=== PATIENT | female | born 1950 | race Caucasian/White ===

== ENCOUNTER 2018-01-27 07:05 | Inpatient (IN) | payer MEDICARE, OTHER ==
[~2018-01-27] VITALS: Ht 157.5 cm; Wt 102.1 kg
[2018-01-27] MEDS ORDERED: PANTOPRAZOLE 40 MG 10ML VIAL IV STA (07:47)
[2018-01-27] MEDS ORDERED: SODIUM CHLORIDE 0.9% 1000ML 1,000 ML IV STA (07:47)
[2018-01-27] MEDS ORDERED: ONDANSETRON HCL INJ 2 MG/ML VIAL IV STA (07:47)
[2018-01-27] MEDS ORDERED: SODIUM CHLORIDE 0.9% 250ML 250 ML IV ONE (08:00)
[2018-01-27 08:10] LABS: BASOPHILS % 0.2 % (0.0-1.0); EOSINOPHILS % 0.3 % (0.0-6.0); HEMATOCRIT 29.9 % (34.2-44.1); HEMOGLOBIN 9.4 g/dL (12.0-16.0); LYMPHOCYTES # (AUTO) 1.8 (1.0-3.2); LYMPHOCYTES % 13.3 % (18.0-39.1); MEAN CORPUSCULAR HEMOGLOBIN 30.4 pg (28-32); MEAN CORPUSCULAR HGB CONC 31.4 g/dL (31-35); MEAN CORPUSCULAR VOLUME 96.8 fL (81-99); MONOCYTES # (AUTO) 0.6 (0.2-0.8); MONOCYTES % 4.4 % (4.4-11.3); NEUTROPHILS # (AUTO) 10.8 (2.1-6.9); NEUTROPHILS % 81.3 % (38.7-80.0); PLATELET COUNT 252 x10e3/uL (140-360); RED BLOOD COUNT 3.09 x10e6/uL (3.6-5.1); RED CELL DISTRIBUTION WIDTH 14.9 % (11.7-14.4)
[2018-01-27 08:14] LABS: INR 1.08; PROTHROMBIN TIME 13.2 seconds (11.9-14.5)
[2018-01-27 08:15] LABS: PARTIAL THROMBOPLASTIN TIME 20.5 seconds (23.8-35.5)
[2018-01-27 08:25] LABS: ALANINE AMINOTRANSFERASE 9 IU/L (0-55); ALBUMIN 2.8 g/dL (3.5-5.0); ALKALINE PHOSPHATASE 66 IU/L (40-150); ANION GAP 12.6 mmol/L (8-16); BLOOD UREA NITROGEN 30 mg/dL (7-26); BUN/CREATININE RATIO 52 (6-25); CALCIUM 8.2 mg/dL (8.4-10.2); CARBON DIOXIDE 26 mmol/L (22-29); CHLORIDE 107 mmol/L (98-107); CREATINE KINASE 47 IU/L (29-168); CREATININE, SERUM 0.58 mg/dL (0.57-1.11); EST GLOMERULAR FILTRATION RATE > 60 ML/MIN (60-); GLUCOSE 178 mg/dL (74-118); POTASSIUM 3.6 mmol/L (3.5-5.1); SODIUM 142 mmol/L (136-145)
--- NOTE | 2018-01-27 08:42 | Diagnostic Imaging Report ---
PROCEDURE: CHEST SINGLE (PORTABLE) COMPARISON: None. INDICATIONS: SHORTNESS OF BREATH, WEAKNESS FINDINGS: The lungs are well-inflated. No focal airspace consolidation, pleural effusion, or pneumothorax. Tortuosity of the thoracic aorta with otherwise normal heart size for portable, AP technique. No overt pulmonary edema. No acute osseous abnormality. CONCLUSION: No acute cardiopulmonary abnormality. Dictated by: Wai Cruz M.D. on 01/27/2018 at 8:44 Electronically approved by: Wai Cruz M.D. on 01/27/2018 at 8:44
[2018-01-27] MEDS ORDERED: ONDANSETRON HCL 4 MG ORAL DISINTEGRATING TAB PO ONE (08:45)
--- OUTSIDE RECORDS SUMMARY | 2018-01-27 09:51 | XMS REPORT ---
Author Author [facility] Address Unknown Phone Unavailable Care Team Providers Care Dock Hand Name Role Phone LANCE FLOYD Unavailable Unavailable Problems This patient has no known problems. Allergies, Adverse Reactions, Alerts This patient has no known allergies or adverse reactions. Medications This patient has no known medications. Results Test Description Test Time Test Comments Text Results Atomic Results Result Comments CHEST SINGLE (PORTABLE) [place] [address] Patient Name: KIMMY DELGADO MR #: [id number] : 1950 Age/Sex: 67/F Req #: [id number] Adm Physician: Ordered by: LANCE FLOYD MD Report #: [id number] Location: ER Room/Bed: Procedure: [id number] DX/CHEST SINGLE (PORTABLE) Exam Date: 01/27/18 Exam Time: 0815 REPORT STATUS: Signed PROCEDURE: CHEST SINGLE (PORTABLE) COMPARISON: None. INDICATIONS: SHORTNESS OF BREATH, WEAKNESS FINDINGS: The lungs are well-inflated. No focal airspace consolidation, pleural effusion, or pneumothorax. Tortuosity of the thoracic aorta with otherwise normal heart size for portable, AP technique. No overt pulmonary edema. No acute osseous abnormality. CONCLUSION: No acute cardiopulmonary abnormality. Dictated by: Joya Alex M.D. on 01/27/2018 at 8:44 Electronically approved by: Joya Alex M.D. on 01/27/2018 at 8:44 Dictated By: JOYA ALEX MD 3 Transcribed By: KEYANA on 01/27/18843 COPY TO: LANCE FLOYD MD
[2018-01-27] MEDS: PANTOPRAZOL 40MG/SOD CHL 0.9% 50 ML IV SCH ×3 (10:20→19:30)
[2018-01-27] MEDS: SODIUM CHLORIDE 0.9% 1000ML 1,000 ML IV SCH ×3 (10:20→21:30)
[2018-01-27 10:50] LABS: BILIRUBIN,URINE NEGATIVE (NEGATIVE); CLARITY,URINE CLEAR (CLEAR); COLOR,URINE YELLOW (YELLOW); KETONES,URINE NEGATIVE (NEGATIVE); LEUKOCYTE ESTERASE ,URINE NEGATIVE (NEGATIVE); NITRITE,URINE NEGATIVE (NEGATIVE); PROTEIN,URINE DIPSTICK NEGATIVE (NEGATIVE); URINE UROBILINOGEN 0.2 mg/dL (0.2 - 1)
[2018-01-27 11:05] LABS: BACTERIA,URINE RARE /HPF; EPITHELIAL CELLS,URINE RARE /LPF; WBC,URINE (MAN) 0-5 /HPF (0-5)
[2018-01-27] MEDS ORDERED: EPINEPHRINE HCL INJ 1 MG/ML AMP ONE (13:22)
--- NOTE | 2018-01-27 13:46 | Consultation ---
DATE OF CONSULTATION: January 27, 2018 REASON FOR CONSULTATION: Melena. CONSULTING PHYSICIAN: Dr. Omari Emerson HPI: The patient is a 67-year-old female with past medical history of hypertension, diabetes mellitus, GERD, IBS, morbid obesity with history of gastric band about 30 years who presented to the ED today with complaints of a single syncopal episode and weakness. Patient says she had recently had a lower back surgery about a week ago. Her had noted that she has passed out yesterday with dizziness and weakness. Upon arrival her hemoglobin was 9.4 and there was observation of melena. Fecal occult blood was also positive. Denies any abdominal pain or discomfort. She also reports constipation. Denies any use of NSAIDs or previous history of peptic ulcer disease. She has not had any EGD in the past but she has had a sigmoidoscopy about 20 years ago. Denies any chest pain, palpitations, diarrhea, sweats or chills. PAST SURGICAL HISTORY: We have gastric band, complete hysterectomy, tubal ligation, two wrist surgeries, one knee surgery and cholecystectomy. MEDICATIONS: Please see nurse's notes. ALLERGIES: Please see nurse's notes. SOCIAL HISTORY: Denies any smoking or alcohol use. FH: noncontributory PHYSICAL EXAMINATION VITAL SIGNS: Blood pressure 122/94, pulse 81, respiratory rate 20, pulse ox 97. APPEARANCE: Alert, no acute distress. HEENT: Neck supple, nontender. Normal inspection. CARDIOVASCULAR: Normal heart rate and rhythm. Pulse is normal. RESPIRATORY: Clear to auscultation bilaterally. No respiratory distress. ABDOMEN: Soft, nontender. Bowel sounds active. No organomegaly. BACK: Tenderness to palpation noted. SKIN: No rash. Pallor noted. EXTREMITIES: No cyanosis, no edema, no clubbing. NEURO: Alert and oriented times 3. Speech normal. No motor deficit. LABS: White count 13.2, hemoglobin 9.4, platelet count 252, coag INR 1.08, sodium 142, potassium 3.6, BUN 30. Total protein 5.5. Fecal occult positive. Chest x-ray: No acute cardiopulmonary abnormality. ASSESSMENT 1. Melena with fecal occult blood positive. 2. Anemia with hemoglobin of 9.4. 3. Syncope. 4. Hypotension. 5. Low back pain. PLAN: We will go ahead and schedule patient for EGD today to rule out GI bleed due to anemia and melena. If EGD is negative will proceed with colonoscopy in the future. Monitor CBC and blood counts and transfuse if less than 7. Thank you for consulting us. We will follow. Dictated by: Chiara Kelly PA-C Patient seen and examined. Agree with documentation as above. Job#: [id number] DG MTDDaniel
[2018-01-27] MEDS ORDERED: DIATRIZOATE MEGL/DIATRIZOA SOD 30 ML BTL PO ONE (13:56)
--- NOTE | 2018-01-27 17:10 | Diagnostic Imaging Report ---
CT Abdomen With Enhancement CPT CODE: 65069 INDICATION: GI bleed, history of lap band TECHNIQUE: 5 mm collimation axial images obtained from the diaphragm to the level of the iliac crests following the uneventful administration of 100 cc of low osmolar, nonionic intravenous contrast. RADIATION DOSE: Total DLP: 516.3 mGy*cm Estimated effective dose: (DLP x 0.015 x size factor) mSv CTDIvol has been reviewed. It is below the limits set by the Radiation Protocol Committee (RPC). COMPARISON: None. ABDOMEN FINDINGS: Lung Bases: Mild hyperinflation with bibasilar atelectasis. Significant coronary artery calcifications. The heart is normal in size. There is a small to moderate-sized paraesophageal hernia. Liver: Decreased attenuation.. No evidence for mass. Gallbladder: Absent. No biliary ductal dilatation. Pancreas: Normal attenuation without mass or ductal dilatation. Spleen: Normal in attenuation and size without mass. Adrenal Glands: No evidence for mass. Kidneys: Symmetric enhancement. No cortical mass. No hydronephrosis. Lymph Nodes: No enlarged abdominal or periaortic lymph nodes. Bowel: There is no evidence of laparoscopic gastric band. There is narrowing of the GE junction that may be the result of previous band placement. The remainder of the stomach is well opacified and appears normal. Opacified portions of the small bowel are normal in diameter with normal wall thickness. There is enteric contrast in the cecum. There are diverticula in the descending colon without associated inflammation. The sigmoid colon was not included on this exam. The appendix is not visualized. Aorta: Ectatic but normal in diameter with scattered calcifications. No free fluid or fluid collection. Bones: Postoperative changes of the lumbar spine from laminectomy and posterior fusion from L4 to S1. The hardware is intact without surrounding lucency to suggest loosening. There is grade 1 anterolisthesis of L4 on L5. There is a loculated fluid collection posterior to the spine between the erector spinae beginning at L2 and extending from proximally 10 cm. This measures 4.3 x 1.8 cm in the axial plane and 9 Hounsfield units. The psoas muscles appear normal. There are moderate degenerative changes of the lower thoracic and upper lumbar spine. No compression deformity. No destructive lesions. Soft tissues: Fat-containing hernia through the linea alba to the left of midline has an aperture of 2.4 cm. This is incompletely imaged. There is no bowel containing hernia. IMPRESSION: 1. Small to moderate-sized paraesophageal hernia. 2. No evidence of laparoscopic gastric band or other bariatric program medical director. 3. Diverticulosis coli. No evidence of diverticulitis in the visualized portions of the large bowel. No evidence of bowel obstruction. 4. Hepatic steatosis. 5. Cholecystectomy. 6. Postoperative changes of the spine from laminectomy and fusion with a loculated fluid collection in the soft tissues, likely a seroma. Please correlate for signs/symptoms of infection. Signed by: Dr. Jorge Ames MD on 01/27/2018 5:07 PM
[2018-01-27] MEDS ORDERED: PROPOFOL IV EMULSION 10 MG/ML 20 ML VIAL ONE (17:43)
[2018-01-27] MEDS ORDERED: LIDOCAINE HCL 2% LOCAL INJ 5 ML SDV VIAL INJ ONE (17:43)
[2018-01-27 18:25] VITALS: BP 114/66
--- NOTE | 2018-01-27 20:42 | Consultation ---
DATE OF CONSULTATION: January 27, 2018 CO-REFERRING PHYSICIAN: Dr. Merari Lange HISTORY OF PRESENT ILLNESS: Patient is a 67-year-old female, history of hypertension, diabetes, obesity, previous gastric band done 30 years ago. She presented to the hospital after a syncopal episode with feelings of weakness. She has upper GI endoscopy that revealed erosion of the gastric banded into the stomach with bleeding around her, was eroding. She is hemodynamically stable now. CT of the abdomen was done, which did not reveal the band and she does not have a LAP-BAND. This was a Dacron band placed with open surgery 30 years ago. PAST MEDICAL HISTORY: Patient has history of previous hysterectomy with tubal ligation, wrist surgery, knee surgery, cholecystectomy, and the above-mentioned gastric and. There were no medications at home has no known. ALLERGIES: NO KNOWN DRUG ALLERGIES. FAMILY HISTORY: Noncontributory. SOCIAL HISTORY: Patient does not smoke cigarettes or drink alcohol. REVIEW OF SYSTEMS: As stated above. She has had no fever. EXAM VITAL SIGNS: Normal. GENERAL: The patient is awake and alert, in no distress. HEENT: Reveals no scleral icterus. NECK: Has no masses. LUNGS: Equal breath sounds are clear bilaterally. CARDIAC: Regular rate and rhythm, with no murmur. ABDOMEN: Soft. There is a healed right subcostal wound, healed upper midline wound. There was no mass. There was no significant tenderness. EXTREMITIES: Have no edema. NEUROLOGIC: Grossly intact. LAB TESTS: White blood count 13.2, hemoglobin 9.4, hematocrit 29.9. Chemistries are essentially normal. ASSESSMENT: A 67-year-old female with upper gastrointestinal bleeding secondary to erosion of gastric band into the stomach. At this point, I think the best treatment would be to proceed with surgery to remove the gastric band. PLAN: To schedule for tomorrow. Procedure was explained to the patient including risks, benefits, and alternatives. She understands procedures. She has had the opportunity to ask questions. Thank you for asking me to see Ms. Broderick. Job#: [id number] CQ
[2018-01-27] MEDS ORDERED: SODIUM CHLORIDE 0.9% 1000ML 1,000 ML ONE (20:53)
[2018-01-27] MEDS: METOCLOPRAMIDE HCL 10 MG/2ML VIAL IV SCH (21:00)
[2018-01-27 21:39] LABS: HEMATOCRIT 24.1 % (34.2-44.1); HEMOGLOBIN 7.6 g/dL (12.0-16.0)
[2018-01-27] MEDS ORDERED: IOPAMIDOL 370 MG/ML 200 ML INFUS..BTL INJ ONE (22:14)
[2018-01-27] MEDS ORDERED: SODIUM CHLORIDE 0.9% 50ML 50 ML ONE (22:14)
[2018-01-27 22:25] VITALS: BP 99/63
[2018-01-27] MEDS ORDERED: SIMVASTATIN20 MG PO (22:53)
[2018-01-27] MEDS ORDERED: LOSARTAN POTAS100 MG PO (22:55)
[2018-01-27] MEDS ORDERED: HYDROCHLOROTHIA25 MG (22:56)
[2018-01-27] MEDS ORDERED: ASPIR 8181 MG PO (22:57)
[2018-01-27] MEDS ORDERED: SYNTHROID100 MCG PO (22:58)
[2018-01-28] VITALS (7 sets, daily range): BP systolic 92–141; BP diastolic 56–74
[2018-01-28] MEDS: PANTOPRAZOL 40MG/SOD CHL 0.9% 50 ML IV SCH ×5 (01:00→20:12)
[2018-01-28] MEDS: METOCLOPRAMIDE HCL 10 MG/2ML VIAL IV SCH ×4 (01:00→18:13)
[2018-01-28 03:59] LABS: HEMATOCRIT 23.1 % (34.2-44.1); HEMOGLOBIN 7.3 g/dL (12.0-16.0)
[2018-01-28] MEDS: SODIUM CHLORIDE 0.9% 1000ML 1,000 ML IV SCH ×3 (05:30→21:30)
[2018-01-28 06:13] LABS: BASOPHILS % 0.2 % (0.0-1.0); EOSINOPHILS % 0.2 % (0.0-6.0); HEMATOCRIT 23.1 % (34.2-44.1); HEMOGLOBIN 7.3 g/dL (12.0-16.0); LYMPHOCYTES # (AUTO) 2.2 (1.0-3.2); LYMPHOCYTES % 27.4 % (18.0-39.1); MEAN CORPUSCULAR HEMOGLOBIN 30.4 pg (28-32); MEAN CORPUSCULAR HGB CONC 31.6 g/dL (31-35); MEAN CORPUSCULAR VOLUME 96.3 fL (81-99); MONOCYTES # (AUTO) 0.5 (0.2-0.8); MONOCYTES % 5.7 % (4.4-11.3); NEUTROPHILS # (AUTO) 5.3 (2.1-6.9); NEUTROPHILS % 65.6 % (38.7-80.0); PLATELET COUNT 202 x10e3/uL (140-360); RED CELL DISTRIBUTION WIDTH 15.3 % (11.7-14.4)
[2018-01-28 06:44] LABS: ANION GAP 8.8 mmol/L (8-16); BLOOD UREA NITROGEN 18 mg/dL (7-26); BUN/CREATININE RATIO 34 (6-25); CARBON DIOXIDE 27 mmol/L (22-29); CHLORIDE 110 mmol/L (98-107); CREATININE, SERUM 0.53 mg/dL (0.57-1.11); EST GLOMERULAR FILTRATION RATE > 60 ML/MIN (60-); GLUCOSE 112 mg/dL (74-118); POTASSIUM 3.8 mmol/L (3.5-5.1); SODIUM 142 mmol/L (136-145)
[2018-01-28] MEDS ORDERED: HYDROCODONE/APAP 5MG-325MG TAB PO PRN (07:00)
[2018-01-28] MEDS ORDERED: SODIUM CHLORIDE 0.9% 250ML 250 ML IV ONE ×2 (07:00→07:15)
[2018-01-28 09:37] LABS: CHOL/HDL RATIO 5.2 (3.0-3.6)
[2018-01-28 10:04] LABS: FERRITIN 64.46 ng/mL (4.63-204.00)
--- NOTE | 2018-01-28 10:08 | History and Physical ---
PRIMARY CARE PHYSICIAN: Dr. Red Anand. CHIEF COMPLAINT: Passing out. HISTORY OF PRESENT ILLNESS: This is a 67-year-old woman with a history of prediabetes and thyroid disease, now getting sweaty when she went to the bathroom. Upon return to bed, she passed out in her 's arms. Did not hit the floor. Therefore, she was brought to the hospital for further evaluation and management. Patient denies any vomiting or diarrhea. Here, she was found to have low blood pressure and positive stool occult blood. GI was consulted. Patient admitted for further evaluation and management. PAST MEDICAL HISTORY: Prediabetes, hypertension, hyperlipidemia, thyroid disease, morbid obesity, status post gastric bypass about 30 years ago, GERD, and IBS. PAST SURGICAL HISTORY: History of bypass surgery about 30 years ago, back surgery 5 weeks ago, hand surgery times 2, knee meniscus surgery, cholecystectomy, hysterectomy, and tonsillectomy. ALLERGIES: PER ELECTRONIC MEDICAL RECORD. FAMILY HISTORY/SOCIAL HISTORY: Patient is . She has 2 children. No alcohol, illicits or cigarettes. MEDICATIONS: Per electronic medical record. REVIEW OF SYSTEMS: Denies any dizziness or chest pain. PHYSICAL EXAMINATION VITAL SIGNS: Reviewed. Blood pressure was 91/58. GENERAL: A tired-appearing woman resting in bed. HEENT: Anicteric. Pupils respond to light. No oral lesions. CARDIOVASCULAR: Normal S1 and S2. LUNGS: Moderate breath sounds. ABDOMEN: Soft, nontender, and nondistended. EXTREMITIES: No edema or calf tenderness. NEUROLOGICAL: Alert and oriented times 3. Moving all extremities. SKIN: Dry. PSYCHIATRIC: Normal affect. LABS: Reviewed. MEDICATIONS: Reviewed. ASSESSMENT AND PLAN: This is a 67-year-old woman with 1. Syncope in the setting of hypotension. Rehydrate and reassess. Obtain orthostatic vitals. Obtain an echocardiogram. 2. Melena in the setting of anemia. Removal of the gastric band is being planned by Dr. Boyle. Follow up endoscopy report. Computerized tomography of the abdomen showed a small moderate-sized paraesophageal hernia. 3. Normocytic anemia, moderate. Will obtain anemia panel. 4. Leukocytosis of unknown etiology, resolving. 5. Morbid obesity, body mass index is 41.2. Obtain lipid panel and hemoglobin A1c. 6. Prediabetes. Obtain hemoglobin A1c. 7. Thyroid disease. Obtain thyroid-stimulating hormone. 8. Diverticulosis. No evidence of diverticulitis on imaging. 9. Fluid collection soft tissue of the spine, status post laminectomy and fusion. Possibility of seroma. We will follow up for any symptoms. 10. Hypotension, we will hold on hypertensive medications. 11. Prophylaxis: Use sequential compression devices and Pepcid. 12. Disposition: Follow up endoscopy report. Follow up surgical plans for removal of gastric band and obtain further studies including echocardiogram. Job#: [id number] CF
[2018-01-28] MEDS ORDERED: SODIUM CHLORIDE 0.9% 250ML 250 ML ONE (12:42)
[2018-01-28 18:30] LABS: BASOPHILS # (AUTO) 0.1 (0.0-0.1); BASOPHILS % 0.5 % (0.0-1.0); EOSINOPHILS # (AUTO) 0.1 (0.0-0.4); EOSINOPHILS % 0.5 % (0.0-6.0); HEMATOCRIT 31.1 % (34.2-44.1); HEMOGLOBIN 9.7 g/dL (12.0-16.0); LYMPHOCYTES # (AUTO) 2.2 (1.0-3.2); MEAN CORPUSCULAR HEMOGLOBIN 29.8 pg (28-32); MEAN CORPUSCULAR HGB CONC 31.2 g/dL (31-35); MEAN CORPUSCULAR VOLUME 95.7 fL (81-99); MONOCYTES # (AUTO) 0.9 (0.2-0.8); MONOCYTES % 8.2 % (4.4-11.3); NEUTROPHILS # (AUTO) 7.2 (2.1-6.9); NEUTROPHILS % 68.6 % (38.7-80.0); PLATELET COUNT 221 x10e3/uL (140-360); RED BLOOD COUNT 3.25 x10e6/uL (3.6-5.1); RED CELL DISTRIBUTION WIDTH 16.2 % (11.7-14.4)
[2018-01-28] MEDS: SIMVASTATIN 20 MG TAB PO SCH (20:12)
[2018-01-29] MEDS: METOCLOPRAMIDE HCL 10 MG/2ML VIAL IV SCH ×3 (00:10→12:00)
[2018-01-29 00:33] LABS: BASOPHILS % 0.3 % (0.0-1.0); EOSINOPHILS # (AUTO) 0.1 (0.0-0.4); EOSINOPHILS % 0.5 % (0.0-6.0); HEMOGLOBIN 9.6 g/dL (12.0-16.0); LYMPHOCYTES # (AUTO) 2.3 (1.0-3.2); LYMPHOCYTES % 22.8 % (18.0-39.1); MEAN CORPUSCULAR HEMOGLOBIN 30.8 pg (28-32); MEAN CORPUSCULAR HGB CONC 33.1 g/dL (31-35); MEAN CORPUSCULAR VOLUME 92.9 fL (81-99); MONOCYTES # (AUTO) 0.5 (0.2-0.8); MONOCYTES % 4.7 % (4.4-11.3); NEUTROPHILS % 70.9 % (38.7-80.0); PLATELET COUNT 202 x10e3/uL (140-360); RED BLOOD COUNT 3.12 x10e6/uL (3.6-5.1); RED CELL DISTRIBUTION WIDTH 16.2 % (11.7-14.4)
[2018-01-29] MEDS: PANTOPRAZOL 40MG/SOD CHL 0.9% 50 ML IV SCH ×4 (01:56→21:30)
[2018-01-29 04:39] VITALS: BP 153/84
[2018-01-29] MEDS: SODIUM CHLORIDE 0.9% 1000ML 1,000 ML IV SCH (05:30)
[2018-01-29] MEDS: LEVOTHYROXINE SODIUM 100 MCG TAB PO SCH (06:00)
[2018-01-29 06:13] LABS: BASOPHILS % 0.4 % (0.0-1.0); EOSINOPHILS % 0.6 % (0.0-6.0); LYMPHOCYTES # (AUTO) 1.6 (1.0-3.2); LYMPHOCYTES % 22.3 % (18.0-39.1); MEAN CORPUSCULAR HGB CONC 32.1 g/dL (31-35); MEAN CORPUSCULAR VOLUME 93.3 fL (81-99); MONOCYTES # (AUTO) 0.4 (0.2-0.8); NEUTROPHILS % 69.4 % (38.7-80.0); PLATELET COUNT 183 x10e3/uL (140-360); RED CELL DISTRIBUTION WIDTH 16.1 % (11.7-14.4)
[2018-01-29 07:00] VITALS: BP 133/69
--- NOTE | 2018-01-29 07:09 | Progress Note ---
DATE: January 29, 2018 TIME: 6:46 a.m. OVERNIGHT: No events. REVIEW OF SYSTEMS: Denies any dizziness. PHYSICAL EXAMINATION VITAL SIGNS: Reviewed. GENERAL: A tired-appearing woman resting in bed. HEENT: Anicteric. CARDIOVASCULAR: Normal S1 and S2. LUNGS: Moderate breath sounds. ABDOMEN: Soft and nontender. EXTREMITIES: No edema or calf tenderness. NEUROLOGICAL: Alert and oriented times 3. Moving all extremities. LABS: Reviewed. MEDICATIONS: Reviewed. ASSESSMENT: A 67-year-old woman with: 1. Syncope in the setting of hypotension. 2. Melena in the setting of anemia. 3. Normocytic anemia, moderate: Status post transfusion. 4. Morbid obesity: Body mass index 41.2. 5. Prediabetes. 6. Thyroid disease. 7. Diverticulosis. 8. Fluid collection in the soft tissue following laminectomy. 9. Hypotension. PLAN 1. Surgery pending today to remove the orogastric banding. 2. Hemoglobin is stable and improved. Now, it is 9 today and 9.6 yesterday. Remains somewhat stable. 3. Hemoglobin A1c 5.6, LDL 84 and triglycerides 143. Job#: [id number] DC
[2018-01-29 11:00] VITALS: BP 144/69
[2018-01-29] MEDS ORDERED: BACITRACIN 50,000 UNIT VIAL ONE (12:53)
[2018-01-29] MEDS: DEXTROSE 5%/LACTATED RINGERS 1,000 ML IV SCH ×2 (13:54→22:57)
[2018-01-29] MEDS ORDERED: ONDANSETRON HCL INJ 2 MG/ML VIAL IV PRN (14:00)
[2018-01-29] MEDS ORDERED: NALOXONE HCL INJ 0.4 MG/ML AMP IV PRN (14:00)
[2018-01-29] MEDS ORDERED: DIPHENHYDRAMINE HCL INJ 50 MG/ML VIAL IM PRN (14:00)
[2018-01-29] MEDS ORDERED: ACETAMINOPHEN 1000 MG/100 ML IV PRN (14:00)
[2018-01-29] MEDS ORDERED: CEFAZOLIN SOD 2 GM in WATER STERILE 10ML VIAL 10 ML IV SCH (14:00)
[2018-01-29] MEDS ORDERED: FENTANYL CITRATE/PF 100MCG/2 ML INJ ONE ×2 (14:09→17:25)
[2018-01-29] MEDS ORDERED: ACETAMINOPHEN 1000 MG/100 ML 100 ML IV ONE (14:35)
[2018-01-29] MEDS ORDERED: KETOROLAC TROMETHAMINE 30 MG/ML VIAL ONE (14:35)
[2018-01-29 15:00] VITALS: BP 135/75
[2018-01-29] MEDS: CEFAZOLIN SOD 1 GM VIAL IV SCH ×2 (15:00→21:18)
[2018-01-29] MEDS ORDERED: HYDROMORPHONE 0.2MG/ML-SOD CHL 30ML PCA SYRINGE IV ONE (15:03)
--- NOTE | 2018-01-29 15:53 | Operative Report ---
DATE OF PROCEDURE: January 29, 2018 PREOPERATIVE DIAGNOSIS: 1. Eroded gastric band. 2. Upper gastrointestinal bleeding. POSTOPERATIVE DIAGNOSIS: 1. Eroded gastric band. 2. Upper gastrointestinal bleeding. PROCEDURE: 1. Exploratory laparotomy. 2. Gastrotomy with removal of eroded gastric band. GAMBLING DEALER: None. ANESTHESIA: General. INDICATIONS AND FINDINGS: Patient is a 67-year-old female who had a gastric band placed many years ago. She was admitted to the hospital with upper GI bleeding, and endoscopy revealed erosion of the gastric band into the proximal stomach. At surgery the band was palpable within the stomach. It was within the gastric wall. The portion had eroded into the lumen. A gastrotomy was made and the band was removed without difficulty. TECHNIQUE: After adequate general anesthesia, patient in supine position, the abdomen was prepped and draped in sterile fashion with Phoenix solution. Through an upper midline incision the peritoneal cavity was entered. Initial exploration revealed some adhesions involving the omentum. These adhesions were lysed. Palpation of the stomach revealed the band palpable in the proximal stomach. The stomach was mobilized. The area where the band was palpable was identified, and it was all completely either intraluminal or within the gastric wall. A gastrotomy was made. The band was found to be about 3/4 intraluminal, and the band was divided and removed without difficulty. Hemostasis was seen to be adequate. The gastrotomy was then closed in 2 layers using 2-0 Vicryl and 3-0 silk, and then omentum was sutured over the suture line using 3-0 silk. The peritoneal cavity was irrigated with saline, all fluid aspirated. It was inspected for hemostasis, which was seen to be adequate. It was irrigated once again with saline, all fluid aspirated, inspected for hemostasis, which was seen to be adequate. The wound was then closed. The midline fascia was closed with running suture of number 1 PDS. Subcutaneous tissue was irrigated with saline, and skin was closed with carl. Sterile dressing was applied. Patient tolerated the procedure well. Estimated blood loss was 50 mL. There were no complications. All counts were correct. Patient was taken to the recovery room in satisfactory condition. Job#: [id number] EV
[2018-01-29] MEDS ORDERED: ONDANSETRON HCL INJ 2 MG/ML VIAL ONE (17:12)
[2018-01-29] MEDS ORDERED: PROPOFOL IV EMULSION 10 MG/ML 20 ML VIAL ONE (17:12)
[2018-01-29] MEDS ORDERED: LIDOCAINE HCL 2% LOCAL INJ 5 ML SDV VIAL INJ ONE (17:12)
[2018-01-29] MEDS ORDERED: SEVOFLURANE INHAL SOLN 250 ML PEN BTL ONE (17:12)
[2018-01-29] MEDS ORDERED: ROCURONIUM BROMIDE 10 MG/ML 5ML VIAL ONE (17:12)
[2018-01-29] MEDS ORDERED: MIDAZOLAM HCL 2 MG/2 ML VIAL ONE (17:25)
[2018-01-29 18:50] LABS: BASOPHILS % 0.2 % (0.0-1.0); EOSINOPHILS % 0.1 % (0.0-6.0); HEMATOCRIT 26.7 % (34.2-44.1); HEMOGLOBIN 8.6 g/dL (12.0-16.0); LYMPHOCYTES # (AUTO) 1.4 (1.0-3.2); LYMPHOCYTES % 12.3 % (18.0-39.1); MEAN CORPUSCULAR HEMOGLOBIN 30.3 pg (28-32); MEAN CORPUSCULAR HGB CONC 32.2 g/dL (31-35); MONOCYTES # (AUTO) 0.6 (0.2-0.8); MONOCYTES % 5.4 % (4.4-11.3); NEUTROPHILS # (AUTO) 9.2 (2.1-6.9); NEUTROPHILS % 81.4 % (38.7-80.0); PLATELET COUNT 176 x10e3/uL (140-360); RED BLOOD COUNT 2.84 x10e6/uL (3.6-5.1); RED CELL DISTRIBUTION WIDTH 15.9 % (11.7-14.4)
[2018-01-29 19:25] VITALS: BP 119/66
[2018-01-29 20:00] VITALS: BP 119/66
[2018-01-29] MEDS: SIMVASTATIN 20 MG TAB PO SCH (21:00)
[2018-01-30] VITALS: BP 113/61
[2018-01-30] MEDS: PANTOPRAZOL 40MG/SOD CHL 0.9% 50 ML IV SCH ×5 (00:14→18:36)
[2018-01-30] MEDS: HYDROMORPHONE 0.2MG/ML-SOD CHL 30ML PCA SYRINGE IV PRN (02:40)
[2018-01-30 04:40] VITALS: BP 97/53
[2018-01-30] MEDS: LEVOTHYROXINE SODIUM 100 MCG TAB PO SCH (05:55)
[2018-01-30] MEDS: CEFAZOLIN SOD 1 GM VIAL IV SCH (05:55)
[2018-01-30] MEDS: METOCLOPRAMIDE HCL 10 MG/2ML VIAL IV SCH ×4 (05:56→18:35)
[2018-01-30 06:20] LABS: BASOPHILS % 0.1 % (0.0-1.0); EOSINOPHILS # (AUTO) 0.1 (0.0-0.4); EOSINOPHILS % 0.4 % (0.0-6.0); HEMATOCRIT 25.1 % (34.2-44.1); HEMOGLOBIN 8.1 g/dL (12.0-16.0); LYMPHOCYTES # (AUTO) 1.3 (1.0-3.2); LYMPHOCYTES % 9.1 % (18.0-39.1); MEAN CORPUSCULAR HEMOGLOBIN 30.6 pg (28-32); MEAN CORPUSCULAR HGB CONC 32.3 g/dL (31-35); MEAN CORPUSCULAR VOLUME 94.7 fL (81-99); MONOCYTES # (AUTO) 0.6 (0.2-0.8); MONOCYTES % 4.2 % (4.4-11.3); NEUTROPHILS # (AUTO) 12.2 (2.1-6.9); NEUTROPHILS % 85.6 % (38.7-80.0); PLATELET COUNT 173 x10e3/uL (140-360); RED BLOOD COUNT 2.65 x10e6/uL (3.6-5.1)
[2018-01-30 06:46] LABS: ANION GAP 10.3 mmol/L (8-16); BLOOD UREA NITROGEN 9 mg/dL (7-26); BUN/CREATININE RATIO 15 (6-25); CARBON DIOXIDE 27 mmol/L (22-29); CHLORIDE 107 mmol/L (98-107); EST GLOMERULAR FILTRATION RATE > 60 ML/MIN (60-); GLUCOSE 154 mg/dL (74-118); POTASSIUM 3.3 mmol/L (3.5-5.1); SODIUM 141 mmol/L (136-145)
[2018-01-30] MEDS ORDERED: POTASSIUM CHLORIDE 20 MEQ TAB CR PO NR (07:45)
--- NOTE | 2018-01-30 07:51 | Progress Note ---
DATE: January 30, 2018 TIME: 7:14 a.m. OVERNIGHT: Status post eroded gastric band removal. REVIEW OF SYSTEMS: Denies any dizziness. PHYSICAL EXAMINATION VITAL SIGNS: Reviewed. GENERAL: A tired-appearing woman resting in bed. HEENT: Anicteric. CARDIOVASCULAR: Normal S1 and S2. LUNGS: Moderate breath sounds. ABDOMEN: Soft and nondistended. She has a dressing in place clean and dry. EXTREMITIES: No edema. SKIN: Dry. PSYCHIATRIC: Normal lat affect. LABS: Reviewed. MEDICATIONS: Reviewed. ASSESSMENT: A 67-year-old woman with: 1. Syncope. 2. Melena. 3. Normocytic anemia, moderate. 4. Morbid obesity: Body mass index 41.2. 5. Prediabetes. 6. Eroded gastric band: Status post removal. 7. Thyroid disease. 8. Diverticulosis. 9. Hypotension. PLAN 1. She is status post removal of the eroded gastric band. 2. Follow up H and H. 3. Hemoglobin A1c was 5.6 and LDL 84. 4. Follow up echocardiogram report. 5. Physical therapy consultation. 6. Replace potassium. 7. Discharge planning. Follow up echocardiogram. Job#: [id number] ME
[2018-01-30 08:00] VITALS: BP_SYST 120; BP_DIAS 70; BP_DIAS 72
[2018-01-30 12:31] LABS: BASOPHILS % 0.1 % (0.0-1.0); EOSINOPHILS # (AUTO) 0.1 (0.0-0.4); EOSINOPHILS % 0.7 % (0.0-6.0); HEMATOCRIT 27.3 % (34.2-44.1); HEMOGLOBIN 8.6 g/dL (12.0-16.0); LYMPHOCYTES # (AUTO) 1.3 (1.0-3.2); LYMPHOCYTES % 8.3 % (18.0-39.1); MEAN CORPUSCULAR HEMOGLOBIN 30.4 pg (28-32); MEAN CORPUSCULAR HGB CONC 31.5 g/dL (31-35); MEAN CORPUSCULAR VOLUME 96.5 fL (81-99); MONOCYTES # (AUTO) 0.8 (0.2-0.8); NEUTROPHILS # (AUTO) 12.9 (2.1-6.9); NEUTROPHILS % 85.2 % (38.7-80.0); PLATELET COUNT 162 x10e3/uL (140-360); RED BLOOD COUNT 2.83 x10e6/uL (3.6-5.1); RED CELL DISTRIBUTION WIDTH 15.9 % (11.7-14.4)
[2018-01-30] MEDS: ACETAMINOPHEN 325 MG TAB PO PRN ×2 (12:46→19:50)
[2018-01-30] MEDS ORDERED: ONDANSETRON HCL 4 MG ORAL DISINTEGRATING TAB PO ONE (13:20)
[2018-01-30] MEDS: DEXTROSE 5%/LACTATED RINGERS 1,000 ML IV SCH ×3 (13:54→23:50)
[2018-01-30 16:00] VITALS: BP 122/73
[2018-01-30 18:36] LABS: BASOPHILS % 0.2 % (0.0-1.0); EOSINOPHILS # (AUTO) 0.2 (0.0-0.4); EOSINOPHILS % 1.2 % (0.0-6.0); HEMOGLOBIN 8.6 g/dL (12.0-16.0); LYMPHOCYTES # (AUTO) 1.4 (1.0-3.2); LYMPHOCYTES % 9.9 % (18.0-39.1); MEAN CORPUSCULAR HEMOGLOBIN 30.7 pg (28-32); MEAN CORPUSCULAR HGB CONC 31.9 g/dL (31-35); MEAN CORPUSCULAR VOLUME 96.4 fL (81-99); MONOCYTES # (AUTO) 0.7 (0.2-0.8); MONOCYTES % 4.8 % (4.4-11.3); NEUTROPHILS # (AUTO) 11.4 (2.1-6.9); NEUTROPHILS % 83.5 % (38.7-80.0); PLATELET COUNT 151 x10e3/uL (140-360); RED CELL DISTRIBUTION WIDTH 15.9 % (11.7-14.4)
[2018-01-30 19:51] VITALS: BP 109/67
[2018-01-30] MEDS: SIMVASTATIN 20 MG TAB PO SCH (21:05)
[2018-01-31] VITALS (10 sets, daily range): BP systolic 98–130; BP diastolic 52–69
[2018-01-31] MEDS: METOCLOPRAMIDE HCL 10 MG/2ML VIAL IV SCH ×2 (00:01→05:25)
[2018-01-31] MEDS: LEVOTHYROXINE SODIUM 100 MCG TAB PO SCH (05:25)
[2018-01-31] MEDS: PANTOPRAZOL 40MG/SOD CHL 0.9% 50 ML IV SCH ×5 (05:25→22:10)
[2018-01-31 06:08] LABS: HEMATOCRIT 25.9 % (34.2-44.1); HEMOGLOBIN 8.2 g/dL (12.0-16.0); MEAN CORPUSCULAR HEMOGLOBIN 30.7 pg (28-32); MEAN CORPUSCULAR HGB CONC 31.7 g/dL (31-35); PLATELET COUNT 169 x10e3/uL (140-360); RED BLOOD COUNT 2.67 x10e6/uL (3.6-5.1); RED CELL DISTRIBUTION WIDTH 15.9 % (11.7-14.4)
[2018-01-31] MEDS: HYDROMORPHONE 0.2MG/ML-SOD CHL 30ML PCA SYRINGE IV PRN (06:21)
[2018-01-31 06:27] LABS: ANION GAP 10.2 mmol/L (8-16); BLOOD UREA NITROGEN 8 mg/dL (7-26); BUN/CREATININE RATIO 13 (6-25); CALCIUM 8.2 mg/dL (8.4-10.2); CARBON DIOXIDE 30 mmol/L (22-29); CHLORIDE 104 mmol/L (98-107); CREATININE, SERUM 0.61 mg/dL (0.57-1.11); EST GLOMERULAR FILTRATION RATE > 60 ML/MIN (60-); GLUCOSE 149 mg/dL (74-118); POTASSIUM 3.2 mmol/L (3.5-5.1); SODIUM 141 mmol/L (136-145)
[2018-01-31] MEDS: PIPER-TAZ 3.375 GM 50 ML IV SCH ×3 (06:52→22:08)
[2018-01-31] MEDS ORDERED: HYDROMORPHONE 0.2MG/ML-SOD CHL 30ML PCA SYRINGE IV PRN (07:00)
--- NOTE | 2018-01-31 07:24 | Progress Note ---
DATE: January 31, 2018 OVERNIGHT: Patient doing well. Pain well controlled. REVIEW OF SYSTEMS: Denies any dizziness. PHYSICAL EXAMINATION VITAL SIGNS: Reviewed. T-max 100.2. Blood pressure as low as 98/64. GENERAL: A tired-appearing woman resting in bed. HEENT: Anicteric. CARDIOVASCULAR: Normal S1 and S2. LUNGS: Moderate breath sounds. ABDOMEN: Soft and nondistended. She has a dressing in place. She has a restriction dressing in place. She has an abdominal binder in place. EXTREMITIES: No edema. SKIN: Dry. PSYCHIATRIC: Flat affect. LABS: Reviewed. MEDICATIONS: Reviewed. ASSESSMENT: A 67-year-old woman with: 1. Sepsis. 2. Syncope with normal echocardiogram. 3. Melena. 4. Normocytic anemia, moderate. 5. Morbid obesity: Body mass index 41.2. 6. Prediabetes. 7. Eroded gastric band: Status post removal. 8. Thyroid disease. 9. Diverticulosis. 10. Hypotension. PLAN 1. Obtain cultures. 2. Start Zosyn. 3. Treat sepsis. 4. Hemoglobin A1c has improved to 5.6. No longer has prediabetes. 6. Echocardiogram showed normal ejection fraction. 7. Diet per surgical and GI team. 8. Physical therapy. Job#: [id number] JANEEN
[2018-01-31] MEDS: DEXTROSE 5%/LACTATED RINGERS 1,000 ML IV SCH ×2 (07:31→20:18)
[2018-01-31 07:33] LABS: BAND NEUTROPHILS % (MANUAL) 1 %; LYMPHOCYTES % (MANUAL) 9 % (19-48); MONOCYTES % (MANUAL) 3 % (3.4-9.0); NEUTROPHILS % (MANUAL) 87 % (40-74)
[2018-01-31 07:34] LABS: ANISOCYTOSIS SLIGHT; HYPOCHROMASIA SLIGHT
[2018-01-31 07:35] LABS: PLATELET ESTIMATE ADEQUATE; PLATELET MORPHOLOGY COMMENT FEW LARGE; RBC MORPHOLOGY COMMENT NORMAL
[2018-01-31] MEDS ORDERED: POTASSIUM CHLORIDE 20 MEQ TAB CR PO STA (08:29)
[2018-01-31] MEDS ORDERED: METOCLOPRAMIDE HCL 10 MG/2ML VIAL IV PRN (09:15)
[2018-01-31] MEDS: MULTIVITAMINS/MINERALS TAB PO SCH (09:20)
[2018-01-31] MEDS ORDERED: ONDANSETRON HCL 4 MG ORAL DISINTEGRATING TAB PO PRN (09:30)
[2018-01-31] MEDS ORDERED: ACETAMINOPHEN 325 MG TAB PO PRN (14:30)
[2018-01-31 16:30] LABS: BILIRUBIN,URINE NEGATIVE (NEGATIVE); CLARITY,URINE CLEAR (CLEAR); COLOR,URINE YELLOW (YELLOW); KETONES,URINE NEGATIVE (NEGATIVE); LEUKOCYTE ESTERASE ,URINE NEGATIVE (NEGATIVE); NITRITE,URINE NEGATIVE (NEGATIVE); PROTEIN,URINE DIPSTICK TRACE (NEGATIVE); URINE UROBILINOGEN 0.2 mg/dL (0.2 - 1)
[2018-01-31 16:52] LABS: EPITHELIAL CELLS,URINE RARE /LPF; RBC,URINE 0-5 /HPF (0-5)
[2018-01-31] MEDS: SIMVASTATIN 20 MG TAB PO SCH (20:18)
[2018-02-01] VITALS (7 sets, daily range): BP systolic 122–139; BP diastolic 69–84
[2018-02-01] MEDS: DEXTROSE 5%/LACTATED RINGERS 1,000 ML IV SCH (06:03)
[2018-02-01] MEDS: PIPER-TAZ 3.375 GM 50 ML IV SCH ×3 (06:03→21:51)
[2018-02-01] MEDS: LEVOTHYROXINE SODIUM 100 MCG TAB PO SCH (06:04)
[2018-02-01] MEDS ORDERED: HYDROCODONE/APAP 5MG-325MG TAB PO PRN (08:00)
[2018-02-01] MEDS: PANTOPRAZOL 40MG/SOD CHL 0.9% 50 ML IV SCH (08:01)
[2018-02-01] MEDS: MULTIVITAMINS/MINERALS TAB PO SCH (08:01)
[2018-02-01] MEDS ORDERED: POTASSIUM CHLORIDE 10 MEQ TABCR PO ONE (17:00)
[2018-02-01] MEDS: ACETAMINOPHEN 325 MG TAB PO PRN ×3 (17:01→23:17)
--- NOTE | 2018-02-01 18:49 | Progress Note ---
DATE: February 01, 2018 TIME OF SERVICE: 1330 SUBJECTIVE: Overnight no acute events. REVIEW OF SYSTEMS: The patient denies any chest pain or shortness of breath. Denies nausea, vomiting, diarrhea, dizziness. OBJECTIVE VITAL SIGNS: T 99.7, P 71, respirations 18, BP 139/84. Pulse oximetry 95%. GENERAL: This is a tired-appearing woman resting supine in bed. HEENT: Normocephalic, oral mucosa moist and intact, no sinus tenderness, nares patent, PERRLA. CARDIOVASCULAR: S1 and S2 auscultated with distant systolic grade 2 murmur intermittently noted. Exam limited by habitus. LUNGS: Moderate breath sounds in all dykes with excursion. ABDOMEN: Soft, nondistended, slightly tender to palpation. Abdominal binder in place. EXTREMITIES: No edema with trace DP and PT pulses. SKIN: Dry. PSYCHIATRIC: Flat affect. LABORATORY DATA: Prior day's labs reviewed. MEDICATIONS: 1. Acetaminophen 650 mg p.o. q.4 h. p.r.n. 2. Zosyn q.8 h. IV. 3. Synthroid 100 mcg p.o. q.a.m. 4. Reglan p.r.n. 5. P.r.n. Tylenol. 6. P.o. Zocor q nightly. 7. Multivitamins p.o. daily. 8. P.r.n. [place]. 9. P.r.n. Zofran. ASSESSMENT AND PLAN: This is a 67-year-old woman with: 1. Sepsis, continuing with resolve with IV antibiotics. 2. Syncope with normal echocardiogram. Ejection fraction within expected limits. 3. Melena. Hemoglobin and hematocrit stable. 4. Normocytic anemia, moderate. Will follow up in the a.m. 5. Morbid obesity. BMI 41.2. 6. Prediabetes. Hemoglobin A1c 5.6. Continue controlling with diet, continue with treatment. 7. Orogastric band, status post removal day 2, per surgery and GI. 8. Thyroid disease. Continue Synthroid. 9. Diverticulosis. Continue with dietary intervention. 10. Hypotension. 11. Prophylaxis: SCDs. DISPOSITION: The patient advancing diet and ambulating this day. Consuming p.o. diet without difficulty and reports significant reduction in pain. Bowel movement x2 this day. Continue treatment. Dictated by Mukund Felipe NP. Job#: [id number] GH
[2018-02-01] MEDS: SIMVASTATIN 20 MG TAB PO SCH (20:30)
[2018-02-02] VITALS (7 sets, daily range): BP systolic 128–140; BP diastolic 65–78
[2018-02-02] MEDS: LEVOTHYROXINE SODIUM 100 MCG TAB PO SCH (06:23)
[2018-02-02] MEDS: PIPER-TAZ 3.375 GM 50 ML IV SCH (06:23)
[2018-02-02 08:33] LABS: BASOPHILS % 0.3 % (0.0-1.0); EOSINOPHILS # (AUTO) 0.1 (0.0-0.4); EOSINOPHILS % 1.3 % (0.0-6.0); HEMATOCRIT 25.6 % (34.2-44.1); HEMOGLOBIN 8.3 g/dL (12.0-16.0); LYMPHOCYTES # (AUTO) 1.1 (1.0-3.2); LYMPHOCYTES % 15.6 % (18.0-39.1); MEAN CORPUSCULAR HEMOGLOBIN 30.7 pg (28-32); MEAN CORPUSCULAR HGB CONC 32.4 g/dL (31-35); MEAN CORPUSCULAR VOLUME 94.8 fL (81-99); MONOCYTES # (AUTO) 0.6 (0.2-0.8); MONOCYTES % 7.8 % (4.4-11.3); NEUTROPHILS # (AUTO) 5.2 (2.1-6.9); NEUTROPHILS % 74.6 % (38.7-80.0); PLATELET COUNT 194 x10e3/uL (140-360); RED CELL DISTRIBUTION WIDTH 15.2 % (11.7-14.4)
[2018-02-02 08:45] LABS: ANION GAP 9.4 mmol/L (8-16); BLOOD UREA NITROGEN 6 mg/dL (7-26); BUN/CREATININE RATIO 11 (6-25); CALCIUM 8.5 mg/dL (8.4-10.2); CARBON DIOXIDE 33 mmol/L (22-29); CHLORIDE 101 mmol/L (98-107); CREATININE, SERUM 0.54 mg/dL (0.57-1.11); EST GLOMERULAR FILTRATION RATE > 60 ML/MIN (60-); GLUCOSE 122 mg/dL (74-118); POTASSIUM 3.4 mmol/L (3.5-5.1); SODIUM 140 mmol/L (136-145)
[2018-02-02] MEDS: MULTIVITAMINS/MINERALS TAB PO SCH (08:48)
[2018-02-02] MEDS: ACETAMINOPHEN 325 MG TAB PO PRN (11:40)
[2018-02-02] MEDS ORDERED: ACETAMINOPHEN325 M1 PO (13:00)
[2018-02-02] MEDS ORDERED: AUGMENTIN 875-1 EACH PO (13:00)
[2018-02-02] MEDS ORDERED: Multivitamins/Minerals PO (13:00)
[2018-02-02] MEDS ORDERED: POTASSIUM CHLORIDE 10 MEQ TABCR PO ONE (13:30)
--- NOTE | 2018-02-02 19:19 | Discharge Summary ---
PRINCIPAL DIAGNOSES 1. Syncope in the setting of hypertension. 2. Melena in the setting of anemia. 3. Normocytic anemia. 4. Leukocytosis. 5. Morbid obesity. 6. Prediabetes. 7. Thyroid disease. 8. Diverticulosis. 9. Fluid collection/soft tissue of the spine, status post laminectomy and fusion. 10. Hypotension. SECONDARY DIAGNOSES 1. Prediabetes. 2. Hypertension. 3. Hyperlipidemia. 4. Thyroid disease. 5. Morbid obesity. 6. Status post gastric bypass approximately 30 years ago. 7. Gastroesophageal reflux disease. 8. Irritable bowel syndrome. 9. Back surgery x5 weeks. 10. Hand surgery x2. 11. Knee meniscus surgery. 12. Cholecystectomy. 13. Hysterectomy. 14. Tonsillectomy. CHIEF COMPLAINT: This patient was brought to the hospital after a syncopal episode upon returning from the bathroom without prodromal symptom. HISTORY OF PRESENT ILLNESS: Unremarkable patient with status post gastric bypass x 30 years ago. HOSPITAL COURSE: After being brought to the hospital, the patient was found to have positive stool occult blood and low blood pressure. GI was consulted on day 1. GI workup included EGD on day 1 to rule out GI bleed due to the anemia and the melena. Surgical services consulted after GI endoscopy revealed erosion of the gastric band into the stomach with bleeding around, which was eroding. CT of the abdomen was negative. The patient was taken to the surgical suite on January 27 for removal. On day 2, the patient was found to have continued anemia and orthostatic hypotension which was treated with 2 units of packed RBCs. Orthostatic blood pressures were managed. In addition, the patient with some hypoventilation syndrome with intermittent O2 sat dropping into the 80s. On January 29, the patient continued with hemoglobin stabilizing and IV antibiotics. On January 29, the procedure was completed and abdominal binder was in place and the patient progressed with physical therapy and continued with reduction in pain and tolerating p.o. diet and cleared by surgery on discharge on this day, February 02. DISCHARGE MEDICATIONS: The patient was instructed to continue 81 mg of aspirin daily, hydrochlorothiazide 25 mg daily, Synthroid 100 mcg p.o. daily, losartan 100 mg p.o. daily and statin 20 mg 1/2 tablet once daily in addition to didn-skk-cyfughg acetaminophen and MDI. The patient was written prescription for p.r.n. [place] and 7 day b.i.d. regimen of Augmentin. FOLLOWUP INSTRUCTIONS: The patient is to follow up with Dr. Boyle in one week and notify primary care physician on Saturday for followup appointment in one week of discharge from hospital. CONDITION ON DISCHARGE: The patient left the facility in good spirits without complaint in stable condition via wheelchair. DICTATED BY: Mukund Felipe, EFREM VLAD NOVAK MD Job#: [id number] GH
== END 2018-02-02 13:40 | disposition home or self-care (01) | DRG 327 ==
LOC: ER 07:07 → UNDOADMIN 09:49 → ERHOLD 09:49 → ENDO 12:29 → IMCU 19:09
PROVIDERS: ADMIT Internal Medicine; ATTEND Internal Medicine
PROC: 30233N1 Transfusion of Nonautologous Red Blood Cells into Peripheral Vein, Percutaneous Approach (ICD-10-PCS; 2018-01-27)
PROC: 0DP Gastrointestinal System, Removal (ICD-10-PCS; principal; 2018-01-29 12:56)
DX: K95.09 Other complications of gastric band procedure (principal); T83.719A Erosion of other prosthetic materials to surrounding organ or tissue, initial encounter; Z68.41 Body mass index [BMI] 40.0-44.9, adult; D62 Acute posthemorrhagic anemia; M96.842 Postprocedural seroma of a musculoskeletal structure following a musculoskeletal system procedure; D64.9 Anemia, unspecified; E66.01 Morbid (severe) obesity due to excess calories; K57.90 Diverticulosis of intestine, part unspecified, without perforation or abscess without bleeding; R73.03 Prediabetes; K58.9 Irritable bowel syndrome, unspecified; E78.5 Hyperlipidemia, unspecified; K21.9 Gastro-esophageal reflux disease without esophagitis; K59.00 Constipation, unspecified; K44.9 Diaphragmatic hernia without obstruction or gangrene; R06.89 Other abnormalities of breathing
CPT/HCPCS: 36415; 71045; 74160; 80048; 80053; 80061; 81001; 82270; 82550; 82553; 82728; 82948; 83036; 83540; 84443; 84466; 84484; 85007; 85014; 85018; 85025; 85027; 85610; 85730; 86850; 86900; 86920; 87040; 88300; 88302; 88312; 93005; 93306; 96365; 96366; 97139; 99284; J0171; J0690; J1885; J2001; J2250; J2405; J2543; J2765; J7030; J7050; J7120; P9016; Q9967